=== PATIENT | male | born 1935 | race Caucasian/White ===

== ENCOUNTER 2017-10-03 12:21 | Outpatient (CLI) | payer MEDICARE, OTHER ==
[2017-10-03 13:01] LABS: BASOPHILS % (AUTO) 0.4 %; EOSINOPHILS # (AUTO) 0.1 10^3/uL (0.0-0.7); EOSINOPHILS % (AUTO) 1.8 %; HGB - HEMOGLOBIN 13.9 g/dL (14.0-18.0); LYMPHOCYTES # (AUTO) 1.1 10^3/uL (1.5-3.5); LYMPHOCYTES % (AUTO) 23.6 %; MEAN CORPUSCULAR HEMOGLOBIN 33.3 pg (27.0-31.0); MEAN CORPUSCULAR VOLUME 95.1 fL (80.0-94.0); MEAN PLATELET VOLUME 8.4 fL (7.4-11.4); MONOCYTES # (AUTO) 0.6 10^3/uL (0.0-1.0); MONOCYTES % (AUTO) 12.6 %; NEUTROPHILS % (AUTO) 61.6 %; PLT - PLATELET COUNT 231 10^3/uL (130-450); RED BLOOD COUNT 4.19 10^6/uL (4.70-6.10); RED CELL DISTRIBUTION WIDTH 13.4 % (12.0-15.0); WHITE BLOOD COUNT 4.8 x10^3/uL (4.8-10.8)
[2017-10-03 13:17] LABS: ALBUMIN 3.9 g/dL (3.2-5.5); ALBUMIN/GLOBULIN RATIO 1.4 (1.0-2.2); BILIRUBIN,TOTAL 1.7 mg/dL (0.2-1.0); CALCIUM 9.2 mg/dL (8.5-10.3); CREATININE 0.8 mg/dL (0.6-1.2); TOTAL PROTEIN 6.7 g/dL (6.7-8.2)
== END 2017-10-03 12:22 | disposition home or self-care (01) ==
LOC: LAB 12:21
PROVIDERS: ATTEND Neurological Surgery
DX: G56.01 Carpal tunnel syndrome, right upper limb (principal)
CPT/HCPCS: 36415; 80053; 85025

== ENCOUNTER 2017-12-12 10:28 | Emergency (ER) | payer MEDICARE, OTHER ==
--- NOTE | 2017-12-12 11:07 | ED Physician Documentation ---
PD HPI UPPER EXT INJURY - Stated complaint Stated Complaint: GLF/R SHOULDER INJ - Chief complaint Chief Complaint: Ext Problem - History obtained from History obtained from: Patient - History of Present Illness Location: Right, Shoulder Type of injury: Fall Where injury occurred: Other (boat) Timing - onset: How many days ago (2) Worsened by: Moving Associated symptoms: No: Weakness, Numbness, Swelling Similar symptoms before: Has not had sx before - Additonal information Additional information: The patient is an 82-year-old male who presents with right shoulder pain. 2 days ago while on his crabbing boat he fell backwards impacting his right upper arm on a bucket. He denies any other injuries. He is right-hand dominant. Review of Systems Constitutional: denies: Fever Ears: denies: Tinnitus/ringing Cardiac: denies: Chest pain / pressure Respiratory: denies: Dyspnea, Cough GI: denies: Abdominal Pain, Nausea, Vomiting Skin: denies: Rash, Abrasion (s) Musculoskeletal: reports: Joint pain (Right shoulder). denies: Neck pain, Back pain Neurologic: denies: Focal weakness, Numbness, Headache, Head injury, LOC PD PAST MEDICAL HISTORY - Past Medical History Cardiovascular: Hypertension - Past Surgical History Past Surgical History: Yes Ortho: Carpal Tunnel surgery, Spine surgery - Present Medications Home Medications: Ambulatory Orders Medication Instructions Recorded Confirmed Hydrochlorothiazide 20 mg 12/12/17 Losartan [Cozaar] 100 mg 12/12/17 amLODIPine [Norvasc] 5 mg 12/12/17 - Allergies Allergies/Adverse Reactions: Allergies Allergy/AdvReac Type Severity Reaction Status Date / Time No Known Drug Allergies Allergy Verified 12/12/17 10:37 - Social History Does the pt smoke?: No Smoking Status: Never smoker Does the pt drink ETOH?: Yes Does the pt have substance abuse?: No - Immunizations Immunizations are current?: Yes - POLST Patient has POLST: No PD ED PE NORMAL - Vitals Vital signs reviewed: Yes (Initially hypertensive.) - General General: Alert and oriented X 3, Well developed/nourished, Other (Appears well condition for a person of his age.) - HEENT HEENT: Atraumatic - Neck Neck: No bony TTP - Cardiac Cardiac: RRR - Respiratory Respiratory: No respiratory distress, Clear bilaterally, Other (No chest wall tenderness.) - Abdomen Abdomen: Soft, Non tender - Back Back: No spinal TTP - Derm Derm: No rash - Extremities Extremities: Other (There is tenderness to palpation of the posterior aspect of the right shoulder. There is no swelling, ecchymosis, or break in the integument. He is able to elevate the arm at the shoulder past 90, although elevation against resistance exacerbates his pain. Distal neurovascular is intact.) - Neuro Neuro: Alert and oriented X 3, No motor deficit, No sensory deficit Results - Vitals Vitals: Vital Signs - 24 hr 12/12/17 12/12/17 10:33 12:24 Temperature 36.1 C L Heart Rate 66 64 Respiratory 17 16 Rate Blood Pressure 160/72 H 164/74 H O2 Saturation 98 98 Oxygen O2 Source Room air - Rads (name of study) right shoulder Radiology: Prelim report reviewed, EMP read contemporaneously, See rad report (1 ) Moderate inflammatory changes right before meals joint. Focal edema superior to such, consistent with seen arthritis and/or joint effusion. 2) tiny flake fracture off the inferior glenoid rim of indeterminate age.) PD MEDICAL DECISION MAKING - ED course Complexity details: reviewed results, re-evaluated patient, considered differential, d/w patient ED course: The patient's presentation is significant for right shoulder injury caused by falling while on his boat 2 days ago. X-ray examination of the right shoulder reveals a tiny flake fracture off the inferior glenoid rim. This finding was not initially appreciated by me, and the patient was discharged with an initial diagnosis of shoulder contusion/sprain. However, when I became aware of the radiologist's finding, I contacted the patient at home to inform him of the radiographic finding. The patient is a retired orthopedic surgeon, and has a good understanding of the likely healing process. - Sepsis Event Vital Signs: Vital Signs - 24 hr 12/12/17 12/12/17 10:33 12:24 Temperature 36.1 C L Heart Rate 66 64 Respiratory 17 16 Rate Blood Pressure 160/72 H 164/74 H O2 Saturation 98 98 Oxygen O2 Source Room air Departure - Departure Disposition: 01 Home, Self Care Clinical Impression: Fracture of rim of glenoid fossa of right scapula Qualifiers: Encounter type: initial encounter Fracture type: closed Qualified Code(s): S42.141A - Displaced fracture of glenoid cavity of scapula, right shoulder, initial encounter for closed fracture Condition: Stable Instructions: ED Fx Shoulder, ED Sprain Shoulder Comments: You can use Tylenol or ibuprofen as needed to help decrease inflammation. Apply ice pack intermittently for the first 3 days. Follow up with your primary physician if not improving within 2 weeks. Return to the emergency department if you develop increasing pain, or otherwise worsening symptoms. Discharge Date/Time: 12/12/17 12:30
[2017-12-12 12:24] VITALS: BP 164/74
--- NOTE | 2017-12-12 14:17 | XRAY Report ---
Reason: right shoulder injury Procedure Date: 12/12/2017 Accession Number: [id number] / [id number] Procedure: XR - Shoulder 3 View RT CPT Code: FULL RESULT: EXAM: RIGHT SHOULDER RADIOGRAPHY EXAM DATE: 12/12/2017 11:41 AM. CLINICAL HISTORY: Right shoulder injury. COMPARISON: None. TECHNIQUE: 3 views. FINDINGS: Bones: 1 x 4 mm linear calcification immediately adjacent to the inferior glenoid rim. Joints: Moderate size osteophytes, moderate subcortical cirrhosis and cyst formation at the normal caliber AC joint. Large AC joint effusion or synovial thickening with focal deformity of the overlying skin. Type I acromion. Normal caliber glenohumeral joint. Normal caliber subacromial space. Soft tissues: The visualized hemithorax is unremarkable. Focal edema over the AC joint. IMPRESSION: 1. Moderate inflammatory changes right AC joint. Focal edemasuperior to such consistent with synovitis and/or joint effusion.Note that septic joint not excluded. 2. Tiny flake fracture off the inferior glenoid rim of indeterminate age. Correlate clinically and if there is further need to evaluate for osteochondral avulsion injury, MRI of the right shoulder should be considered. [facility]
== END 2017-12-12 12:30 | disposition home or self-care (01) ==
LOC: ED 10:28
DX: S42.141A Displaced fracture of glenoid cavity of scapula, right shoulder, initial encounter for closed fracture (principal); I10 Essential (primary) hypertension; W18.30XA Fall on same level, unspecified, initial encounter; Y92.814 Boat as the place of occurrence of the external cause
CPT/HCPCS: 99283

== ENCOUNTER 2019-02-01 12:45 | Emergency (ER) | payer MEDICARE, OTHER ==
--- NOTE | 2019-02-01 14:12 | XRAY Report ---
Reason: cough Procedure Date: 02/01/2019 Accession Number: [id number] / [id number] Procedure: XR - Chest 2 View X-Ray CPT Code: 85234 FULL RESULT: EXAM: CHEST RADIOGRAPHY EXAM DATE: 02/01/2019 01:48 PM. CLINICAL HISTORY: Cough. COMPARISON: None. TECHNIQUE: 2 views. FINDINGS: Lungs/Pleura: No focal opacities evident. No pleural effusion. No pneumothorax. Normal volumes. Mediastinum: Heart and mediastinal contours are unremarkable. Other: None. IMPRESSION: Normal 2-view chest radiography. [facility]
--- NOTE | 2019-02-01 15:11 | ED Physician Documentation ---
History of Present Illness - Stated complaint Stated Complaint: CONGESTED/COUGH - Chief complaint Chief Complaint: Resp - Additonal information Additional information: This is an 83-year-old male with history of hypertension who presents with a cough productive of yellow sputum, as well as some sore throat that began just over a week ago. Patient self treated with a azithromycin early in the week, and has had no improvement with this. He denies any shortness of breath, states he is able to exercise without any issues. No hemoptysis. He presents because he wants to make sure he Is not developing a pneumonia. Review of Systems Constitutional: denies: Fever Nose: reports: Rhinorrhea / runny nose Throat: reports: Sore throat GI: denies: Abdominal Pain, Vomiting PD PAST MEDICAL HISTORY - Past Medical History Past Medical History: Yes Cardiovascular: Hypertension Respiratory: None Neuro: None Endocrine/Autoimmune: None GI: None : None HEENT: None Psych: None Musculoskeletal: None Derm: None - Past Surgical History Past Surgical History: Yes Ortho: Carpal Tunnel surgery, Spine surgery - Present Medications Home Medications: Ambulatory Orders Medication Instructions Recorded Confirmed Hydrochlorothiazide 20 mg 12/12/17 Losartan [Cozaar] 100 mg 12/12/17 amLODIPine [Norvasc] 5 mg 12/12/17 Benzonatate [Tessalon Perle] 100 - 200 mg PO TID PRN #30 capsule 02/01/19 - Allergies Allergies/Adverse Reactions: Allergies Allergy/AdvReac Type Severity Reaction Status Date / Time No Known Drug Allergies Allergy Verified 12/12/17 10:37 - Social History Does the pt smoke?: No Smoking Status: Never smoker Does the pt drink ETOH?: Yes Does the pt have substance abuse?: No - Immunizations Immunizations are current?: Yes - POLST Patient has POLST: No PD ED PE NORMAL - Vitals Vital signs reviewed: Yes - General General: Alert and oriented X 3, No acute distress - HEENT HEENT: PERRL - Neck Neck: Supple, no meningeal sign - Cardiac Cardiac: RRR - Respiratory Respiratory: No respiratory distress, Clear bilaterally - Abdomen Abdomen: Soft, Non distended - Derm Derm: Warm and dry - Extremities Extremities: No deformity - Neuro Neuro: Alert and oriented X 3 - Psych Psych: Normal mood, Normal affect Results - Vitals Vitals: Oxygen O2 Source Room air - Rads (name of study) CXR Radiology: Final report received (Unremarkable 2 view chest, no pneumonia) PD MEDICAL DECISION MAKING - ED course Complexity details: considered differential (URI, pneumonia, viral syndrome) ED course: Patient presents with symptoms and time course consistent with viral URI, he has no chest pain or shortness of breath, clear lungs and is well appearing on exam. CXR is negative for pneumonia. I discussed that this appears to be a viral URI and the azithromycin does not treat viral illnesses. Tessalon perles prescribed, PCP follow up, supportive care, and return precautions discussed and patient was discharged in the care of his . Departure - Departure Disposition: Home, Self Care Clinical Impression: Viral URI Condition: Good Instructions: ED Viral Syndrome Follow-Up: Your,PCP [Other] (For any continued symptoms) Prescriptions: Benzonatate [Tessalon Perle] 100 - 200 mg PO TID PRN #30 capsule PRN Reason: Cough Comments: You were seen today for cough, and sore throat. Your x-ray does not show signs of pneumonia and I think you likely have a viral upper respiratory infection. Get plenty of rest, drink adequate fluids, you may try the Tessalon Perles for cough as needed. Tea with honey may also help improve your cough. You may also take Tylenol and/or ibuprofen for mild pain or fever. If you are developing shortness of breath, blood in your sputum, or any other concerning symptoms, please return to the emergency department. Discharge Date/Time: 02/01/19 15:24
[2019-02-01 15:23] VITALS: BP 139/84
== END 2019-02-01 15:24 | disposition home or self-care (01) ==
LOC: ED 12:45
DX: J06.9 Acute upper respiratory infection, unspecified (principal); I10 Essential (primary) hypertension
CPT/HCPCS: 71046; 99283